=== PATIENT | male | born 1950 | race Caucasian/White ===

== ENCOUNTER 2021-01-15 01:32 | Day surgery (SDC) | payer MEDICARE, SELFPAY ==
[2020-12-25 15:32] VITALS: BMI 37.3
[2021-01-15 07:16] VITALS: BP 133/64; PULSE 65; RESP 18; TEMP 36.4; O2SAT 97; BMI 36.6
[2021-01-15] MEDS: LACTATED RINGERS 1,000 ML 150 ML IV CONT (07:31)
--- NOTE | 2021-01-15 07:50 | WPDANESEPPF ---
Anes - Initial Pre Proc Eval Procedure: Operation Date: 01/15/21 08:30 Proposed Procedures p Screening Colonoscopy - Jose Fraga MD Date/Time: 01/15/21 07:50 Surgeon: Jose Fraga MD Pre Op Diagnosis: hx of colon polyps Patient Data Age: 70 Gender: M Height: 1.83 m Weight: 122.5 kg Last Vital Signs Temp 36.4 C L 01/15/21 07:16 Pulse 65 01/15/21 07:16 Resp 18 01/15/21 07:16 BP 133/64 01/15/21 07:16 Pulse Ox 97 01/15/21 07:16 Allergies Allergy/AdvReac Type Severity Reaction Status Date / Time Gsmkmzs-Jda-Wrg Reductase AdvReac Intermediate severe leg Verified 01/15/21 07:13 Inhibitor cramps Home Medications Medication Instructions Recorded Confirmed Type alprazolam 0.5 mg tablet 0.5 mg PO Q4-5H tablet 09/03/19 12/25/20 History ascorbic acid (vitamin C) 500 mg 500 mg PO DAILY 10/19/19 12/25/20 History capsule garlic 300 mg capsule 300 mg PO BID cap 10/19/19 12/25/20 History lactobacillus combination no.9 4 4,000 mmu cells PO DAILY 10/19/19 12/25/20 History billion cell capsule psyllium husk 3.4 gram/5.4 gram 1 tbsp PO DAILY 10/19/19 12/25/20 History oral powder triamcinolone acetonide 0.1 % 1 applic TOPICAL QID #80 g 06/24/20 12/25/20 Rx topical cream ezetimibe 10 mg tablet 10 mg PO DAILY #90 tablet 10/27/20 12/25/20 Rx valsartan 80 See Rx Instructions .ROUTE 11/17/20 12/25/20 Rx mg-hydrochlorothiazide 12.5 mg .COMPLEX #90 tablet tablet escitalopram oxalate [Lexapro] 20 mg PO DAILY 12/25/20 12/25/20 History Patient hx anesthesia problems: none Family hx anesthesia problems: none PMFSH Past Medical History Medical History (Updated 01/15/21 @ 07:51 by Binh Traore MD) Anxiety Obesity Social History Social History Smoking status: Current every day smoker Tobacco type: pipe Alcohol intake: current Substance use type: does not use Living arrangements: with family Gender identity (if verbalized by the patient): Male Anes - Eval Final PreProcedure Day of Procedure 01/15/21 07:50 Patient weight: obese Heart: regular rate and rhythm Lungs: clear to auscultation Airway: Mallampati scale class 1 Neurological: alert and oriented Last oral intake: >/= 8 hours ASA classification: III Emergent: no Anesthetic plan: proceed Anesthesia type and monitoring: general GIVS and standard monitoring Informed Consent: The patient's anesthetic plan and its attendant risks and benefits were discussed with the patient/family/POA. Questions were solicited and answers provided to the satisfaction of the patient/family/POA.
--- NOTE | 2021-01-15 08:03 | PM.HPGS ---
History of Present Illness History of Present Illness Consent: Risks, benefits, and alternatives have been discussed and questions answered. Patient agrees to proceed with procedure. Chief complaint: hx of colon polyps Narrative: Preston Meyers is a 70 year old male here for colon cancer screening. He has a history of having had polyps on previous colonoscopies the last 1 6 years ago Review of Systems Review of Systems: All systems reviewed & are unremarkable except as noted in HPI and below PMFSH Past Medical History Medical History Anxiety Obesity Social History Social History Smoking status: Current every day smoker Tobacco type: pipe Alcohol intake: current Substance use type: does not use Living arrangements: with family Gender identity (if verbalized by the patient): Male Meds Home Medications and Allergies Home Medications Medication Instructions Recorded Confirmed Type alprazolam 0.5 mg tablet 0.5 mg PO Q4-5H tablet 09/03/19 12/25/20 History ascorbic acid (vitamin C) 500 mg 500 mg PO DAILY 10/19/19 12/25/20 History capsule garlic 300 mg capsule 300 mg PO BID cap 10/19/19 12/25/20 History lactobacillus combination no.9 4 4,000 mmu cells PO DAILY 10/19/19 12/25/20 History billion cell capsule psyllium husk 3.4 gram/5.4 gram 1 tbsp PO DAILY 10/19/19 12/25/20 History oral powder triamcinolone acetonide 0.1 % 1 applic TOPICAL QID #80 g 06/24/20 12/25/20 Rx topical cream ezetimibe 10 mg tablet 10 mg PO DAILY #90 tablet 10/27/20 12/25/20 Rx valsartan 80 See Rx Instructions .ROUTE 11/17/20 12/25/20 Rx mg-hydrochlorothiazide 12.5 mg .COMPLEX #90 tablet tablet escitalopram oxalate [Lexapro] 20 mg PO DAILY 12/25/20 12/25/20 History Allergies Allergy/AdvReac Type Severity Reaction Status Date / Time Qqpyfwc-Eoa-Ald Reductase AdvReac Intermediate severe leg Verified 01/15/21 07:13 Inhibitor cramps Vital Signs Vital Signs - 24 hr 01/15/21 07:16 Temperature 36.4 C L Pulse Rate 65 Respiratory Rate 18 Blood Pressure 133/64 Pulse Oximetry 97 Exam Resp: Auscultation: clear to auscultation bilaterally Cardio: Rate: regular rate Rhythm: regular rhythm GI: GI Palp: Yes Soft to palpation and No Tenderness to palpation present (GI) Assessment and Plan Assessment and plan (1) Colon cancer screening: Code(s): Z12.11 - Encounter for screening for malignant neoplasm of colon Status: Acute Assessment and Plan: Colonoscopy with possible biopsy or polypectomy or cautery or injection of substances.
[2021-01-15 08:41] VITALS: BP 104/70; PULSE 62; RESP 16; O2SAT 95
[2021-01-15 08:51] VITALS: BP 115/75; PULSE 57; RESP 23; O2SAT 97
[2021-01-15 09:01] VITALS: BP 123/76; PULSE 56; RESP 12; O2SAT 100
== END 2021-01-15 09:21 | disposition home or self-care (01) ==
PROVIDERS: PCP Family Medicine; Visit Provider Internal Medicine Gastroenterology
PROC: 0DJD8ZZ Inspection of Lower Intestinal Tract, Via Natural or Artificial Opening Endoscopic (ICD-10-PCS; CPT 45378; principal; 2021-01-15 08:30)
DX: Z12.11 Encounter for screening for malignant neoplasm of colon (principal); K57.30 Diverticulosis of large intestine without perforation or abscess without bleeding; Z86.010 Personal history of colon polyps; F41.9 Anxiety disorder, unspecified; E66.9 Obesity, unspecified; Z68.36 Body mass index [BMI] 36.0-36.9, adult; F17.290 Nicotine dependence, other tobacco product, uncomplicated
CPT/HCPCS: G0105; J2704; J7120

== ENCOUNTER 2021-07-14 10:09 | Emergency (ER) | payer MEDICARE, SELFPAY ==
[2021-07-14] VITALS (20 sets, daily range): BP systolic 111–145; BP diastolic 53–83; PULSE 57–78; RESP 13–27; TEMP 36.8–36.9; O2SAT 95–99
--- NOTE | ~2021-07-14 | XR_ITS ---
EXAMINATION: XR chest 1V DATE: 07/14/2021 16:46 INDICATION: Dizziness. Hypertension. Parkinson's. TECHNIQUE: frontal view of the chest was obtained. COMPARISON: None FINDINGS: Opacities at the left lower lung zone with obscuration of the left hemidiaphragm and blunting at the left costophrenic angle. No pneumothorax or right-sided pleural effusion. The cardiomediastinal silho uette is normal. Couple old left-sided rib fractures. IMPRESSION: 1. Opacities in the left lower lung zone which could represent atelectasis, pneumonia, small left ple ural effusion or some combination thereof. Reviewed, dictated and finalized at location B. TELECOM TECHNICIAN IMPRESSION: 1. Opacities in the left lower lung zone which could represent atelectasis, pne umonia, small left pleural effusion or some combination thereof.
--- NOTE | ~2021-07-14 | CT_ITS ---
EXAMINATION: CT brain wo con DATE: 07/14/2021 16:42 INDICATION: Dizziness TECHNIQUE: Computed tomography (CT) of the head was performed without intravenous contrast. Sagittal and coronal reconstructions were performed. The mA was adjusted according to patient size. Iterative reconstruction technique was employed. The dose-length product was 681.00 mGy-cm. COMPARISON: None FINDINGS: No acute intracranial hemorrhage, acute infarction or abnormal extra axial fluid collection. Ventricl es are normal and symmetric. No mass/mass effect. Complete opacification of the left frontal sinus, a nterior left ethmoid air cells and left maxillary sinus with complete occlusion of the left ostiomeat al complex. There is sclerotic thickening of the wall of both the left frontal and maxillary sinuses consistent with chronic sinusitis. The orbits and mastoid air cells are normal. IMPRESSION: 1. Normal aging brain. No acute intracranial process. 2. Chronic sinusitis involving the drainage of the left ostiomeatal complex. Reviewed, dictated and finalized at location B. [employer]
--- NOTE | 2021-07-14 16:31 | ECG_ITS ---
Measurements Intervals [place] Rate: 64 P: 60 ME: 182 QRS: 13 QRSD: 98 T: 53 QT: 416 QTc: 431 Interpretive Statements SINUS RHYTHM ATRIAL PREMATURE COMPLEX BASELINE ARTIFACT- I, II, III, AVR, AVL, AVF, V1-V2 BORDERLINE ECG Electronically Signed On 07-14-2021 20:15:22 WEBSITE ADMIN by Mele Eason D.O.
[2021-07-14 17:25] LABS: Basophils Absolute Auto 0.1 K/mm3 (0.0-0.1); Basophils Percent Auto 0.6 % (0.2-1.2); Eosinophils Absolute Auto 0.4 K/mm3 (0-0.3); Eosinophils Percent Auto 4.6 % (0-4.4); Hematocrit 41.4 % (42.0-52.0); Hemoglobin 13.9 g/dL (14.0-18.0); Immature Granulocyte Absolute 0.04 K/mm3 (0.00-0.031); Immature Granulocyte Percent A 0.5 % (0-0.5); Lymphocytes Absolute Auto 2.17 K/mm3 (0.9-3.2); Lymphocytes Percent Auto 27.5 % (18.3-44.2); Mean Corpuscular HGB Conc 33.6 g/dl (32-36); Mean Corpuscular Hemoglobin 29.3 pg (26-34); Mean Corpuscular Volume 87.2 fl (80-100); Mean Platelet Volume 9.5 fl (7.4-10.4); Monocytes Absolute Auto 0.7 K/mm3 (0.1-0.6); Monocytes Percent Auto 8.5 % (2.6-8.5); Neutrophils Absolute Auto 4.6 K/mm3 (1.3-6.7); Neutrophils Percent Auto 58.3 % (45.5-73.1); Platelet Count Result 215 k/mm3 (150-375); Red Blood Count 4.75 M/mm3 (4.6-6.20); Red Cell Distribution Width 13.2 % (11.5-14.5); White Blood Count 7.9 K/mm3 (4.5-10.0)
[2021-07-14 17:35] LABS: Alanine Aminotransferase 16 U/L (4-50); Alkaline Phosphatase 79 U/L (38-126); Anion Gap 6 mmol/L (8-16); Aspartate Amino Transferase 17 U/L (17-59); Bilirubin,Total 0.7 mg/dL (0.2-1.3); Blood Urea Nitrogen 16 mg/dL (9-20); Calcium 8.7 mg/dL (8.4-10.2); Carbon Dioxide 28 mmol/L (22-30); Chloride 104 mmol/L (98-107); Estimated CRCL calculation 80 ml/min; Estimated Glomerular Filt Rate > 60; Glucose 108 mg/dL (65-110); Potassium 3.9 mmol/L (3.4-5.0); Sodium 138 mmol/L (137-145)
[2021-07-14 17:46] LABS: Troponin I < 0.012 ng/mL (0.000-0.034)
[2021-07-14 17:51] LABS: Add Urine Microscopic? NO; Appearance Urine Clear (Clear); Bilirubin Urine Negative (Negative); Blood Urine Negative (Negative); Color Urine Straw (Yellow); Glucose Urine UA Negative (Negative); Ketones Urine Negative (Negative); Leukocyte Esterase Ur Negative LEU/UL (Negative); Nitrate Urine Negative (Negative); Protein Urine Negative (Negative); Specific Grav Ur 1.009 (1.001-1.035); Urobilinogen Urine Negative mg/dL (<2.0)
--- NOTE | 2021-07-14 19:10 | ED.DIZZY ---
HPI - Dizziness General Chief Complaint: Dizziness Stated Complaint: vertigo Time Seen by Provider: 07/14/21 16:28 Source: patient and RN notes reviewed Mode of arrival: ambulatory Limitations: no limitations History of Present Illness HPI Narrative: Patient is 71 years old white male presents to the ED because of intermittent dizziness started 4 days ago. Today patient have no dizziness all day long. Currently patient is asymptomatic. Patient denies any fever, chills, nausea, vomiting, headache, chest pain, shortness of breath, coughing. Patient is vaccinated and boosted for Covid. Patient denies exposure to anybody have Covid recently. Patient tested -2 days ago. Patient reported that the dizziness is like wobbly feeling when he get up or move his head rapidly to the right or to the left.. Gets better when he laid down. Again today patient is asymptomatic and the dizziness is resolved. Related Data Home Medications Medication Instructions Recorded Confirmed ascorbic acid (vitamin C) 500 mg 500 mg PO DAILY 10/19/19 06/17/21 capsule garlic 300 mg capsule 300 mg PO BID cap 10/19/19 06/17/21 lactobacillus combination no.9 4 4,000 mmu cells PO DAILY 10/19/19 06/17/21 billion cell capsule psyllium husk 3.4 gram/5.4 gram 1 tbsp PO DAILY 10/19/19 06/17/21 oral powder Allergies Allergy/AdvReac Type Severity Reaction Status Date / Time Ddtgicj-YVV-RwY Reductase AdvReac Intermediate severe leg Verified 06/17/21 11:05 Inhibitor cramps [Bpaezej-Yxk-Bpl Reductase Inhibitor] Review of Systems Review of Systems: CONSTITUTIONAL: Denies fever, chills, or sweats. EYES: Denies visual changes, redness, or discharge. ENT: Denies rhinorrhea, congestion, sore throat, or otalgia. CARDIOVASCULAR: Denies chest pain, palpitations, or edema. RESPIRATORY: Denies cough or dyspnea. GASTROINTESTINAL: Denies abdominal pain, nausea, vomiting, or diarrhea. GENITOURINARY: Denies dysuria or hematuria. SKIN: Denies rash or itching. MUSCULOSKELETAL: Denies back pain, joint pain, or myalgia. NEUROLOGIC: Denies headache, numbness, or weakness. PSYCHIATRIC: Denies anxiety or depression. [facility] Past Medical History Medical History Anxiety Obesity Social History Social History Tobacco type: pipe Alcohol intake: current Substance use type: does not use Gender identity (if verbalized by the patient): Male Exam Narrative: General appearance: Well-developed, well-nourished Skin: Normal color Head: Normocephalic, nontraumatic Eyes: Clear conjunctiva ENT: Oropharynx normal, ears normal, nose normal Neck: Supple, nontender Chest and respiratory: Airway patent, no respiratory distress, no accessory muscle use Heart: Regular rate/rhythm Abdomen: Soft, nontender, no organomegaly, quiet bowel sounds Vascular: Normal peripheral pulses, normal capillary refill. Musculoskeletal: Normal range of motion, nontender back Neurologic: Alert and oriented ?3, MACHINE ROOM OPERATOR is normal as tested, no gross motor deficit Course Course Emergency Course: Stable, resolved Vital Signs Vital signs: Vital Signs Temperature 36.9 C 07/14/21 10:23 Pulse Rate 73 07/14/21 10:23 Respiratory Rate 18 07/14/21 10:23 Blood Pressure 136/82 07/14/21 10:23 Pulse Oximetry 95 07/14/21 10:23 Temperature 36.8 C 07/14/21 16:11 Pulse Rate 60 07/14/21 18:30 Respiratory Rate 13 07/14/21 17:32 Blood Pressure 125/83 07/14/21 18:30 Pulse Oximetry 95 07/14/21 18:00 MDM - Dizziness MDM Narrative Medical decision making narrative: Work-up showed orthostatic h
--- NOTE | 2021-07-14 19:31 | PC.NURSE ---
Assumed care of pt, discussed POC. Pt states he is no longer dizzy and is requesting to leave. Declines IV and fluids. EDP made aware and at bedside to discuss.
== END 2021-07-14 20:01 | disposition home or self-care (01) ==
PROVIDERS: Emergency Provider Emergency Medicine; PCP Family Medicine
DX: I95.1 Orthostatic hypotension (principal); F41.9 Anxiety disorder, unspecified; E66.9 Obesity, unspecified; Z68.38 Body mass index [BMI] 38.0-38.9, adult; R91.8 Other nonspecific abnormal finding of lung field; R94.31 Abnormal electrocardiogram [ECG] [EKG]; J32.9 Chronic sinusitis, unspecified
CPT/HCPCS: 36415; 70450; 71045; 80053; 81003; 84484; 85025; 93005; 99284

== ENCOUNTER 2021-11-25 09:41 | Outpatient (CLI) | payer MEDICARE, SELFPAY ==
--- NOTE | ~2021-11-25 | XR_ITS ---
EXAMINATION:XR cervical spine min 6V DATE: 11/25/2021 10:00 INDICATION: Left arm tingling and pain TECHNIQUE: AP, lateral, bilateral oblique, lateral swimmers and odontoid views of the cervical spine are provided. COMPARISON: None FINDINGS: Alignment is normal. The odontoid is intact. No fracture is identified. There is severe los s of intervertebral disc space height at C6-7. There is moderate loss of intervertebral disc space he ight at C4-5 and mild loss of intervertebral disc space height throughout the remainder of the cervic al spine. The vertebral body heights are maintained. Small degenerative osteophytes project from the anterior endplates of multiple vertebral bodies. There is severe facet and uncovertebral joint osteoa rthritis throughout the cervical spine. There appears to be severe neuroforaminal stenosis on the rig ht at C6-7 and on the left at C3-4. Prevertebral soft tissues are normal. IMPRESSION: 1. Severe cervical spondylosis without acute findings. Reviewed, dictated and finalized at location A.
== END 2021-11-25 09:42 | disposition home or self-care (01) ==
PROVIDERS: PCP Family Medicine; Visit Provider Family Medicine
DX: G56.00 Carpal tunnel syndrome, unspecified upper limb (principal); G20 Parkinson's disease; M47.892 Other spondylosis, cervical region
CPT/HCPCS: 72052

== ENCOUNTER 2022-01-14 09:30 | Outpatient (CLI) | payer MEDICARE, SELFPAY ==
--- NOTE | 2022-01-14 11:30 | NEURO_ITS ---
Impression: # Complains of numbness in hands. # Bilateral Carpal Tunnel Syndrome, left more than right. # Abnormal needle/EMG. # Clinical correlation recommended. Nerve Conduction Studies Anti Sensory Summary Table Stim Site NR Peak (ms) P-T Amp (?V) Site1 Site2 Delta-P (ms) Dist (cm) Rl (m/s) Left Median Anti Sensory (2-3nd Digit) Wrist 5.1 12.5 Wrist 2-3nd Digit 5.1 14.0 27 Wrist 5.4 7.4 Wrist 2-3nd Digit 5.1 14.0 27 Right Median Anti Sensory (2-3nd Digit) Wrist 3.8 7.1 Wrist 2-3nd Digit 3.8 14.0 37 Wrist 4.3 10.4 Wrist 2-3nd Digit 3.8 14.0 37 Left Radial Anti Sensory (Base 1st Digit) Wrist 2.6 27.4 Wrist Base 1st Digit 2.6 0.0 Right Radial Anti Sensory (Base 1st Digit) Wrist 2.8 5.4 Wrist Base 1st Digit 2.8 0.0 Left Ulnar Anti Sensory (5th Digit) Wrist 2.5 16.5 Wrist 5th Digit 2.5 14.0 56 Right Ulnar Anti Sensory (5th Digit) Wrist 2.9 37.0 Wrist 5th Digit 2.9 14.0 48 Motor Summary Table Stim Site NR Onset (ms) O-P Amp (mV) Site1 Site2 Delta-0 (ms) Dist (cm) Rl (m/s) Left Median Motor (Abd Poll Brev) Wrist 7.0 1.2 Elbow Wrist 6.6 28.0 42 Elbow 13.6 0.6 Right Median Motor (Abd Poll Brev) Wrist 4.2 1.8 Elbow Wrist 4.7 28.0 60 Elbow 8.9 1.0 Left Ulnar Motor (Abd Dig Minimi) Wrist 2.5 8.2 A Elbow Wrist 5.2 30.0 58 A Elbow 7.7 5.9 Right Ulnar Motor (Abd Dig Minimi) Wrist 2.6 6.9 A Elbow Wrist 5.4 31.0 57 A Elbow 8.0 5.6 F Wave Studies NR F-Lat (ms) L-R F-Lat (ms) Left Median (Mrkrs) (Abd Poll Brev) 31.81 0.94 Right Median (Mrkrs) (Abd Poll Brev) 30.88 0.94 Left Ulnar (Mrkrs) (Abd Dig Min) 29.67 0.88 Right Ulnar (Mrkrs) (Abd Dig Min) 30.55 0.88 EMG Side Muscle Nerve Root Ins Act Fibs Amp Dur Recrt Comment Right 1stDorInt Ulnar C8-T1 Nml Nml Nml Nml Nml Right Ext Indicis Radial (Post Int) C7-8 Nml Nml Nml Nml Nml Right Ext Digitorum Radial (Post Int) C7-8 Nml Nml Nml Nml Nml Right BrachioRad Radial C5-6 Nml Nml Nml Nml Nml Right PronatorTeres Median C6-7 Nml Nml Nml Nml Nml Right Abd Poll Brev Median C8-T1 Nml Nml Nml Nml Nml Left 1stDorInt Ulnar C8-T1 Nml Nml Nml Nml Nml Left Ext Indicis Radial (Post Int) C7-8 Nml Nml Nml Nml Nml Left Ext Digitorum Radial (Post Int) C7-8 Nml Nml Nml Nml Nml Left BrachioRad Radial C5-6 Nml Nml Nml Nml Nml Left PronatorTeres Median C6-7 Nml Nml Nml Nml Nml Left Abd Poll Brev Median C8-T1 Nml Nml Decr >12ms Reduced MTDD
== END 2022-01-14 09:31 | disposition home or self-care (01) ==
LOC: ANHNEURO 09:31
PROVIDERS: PCP Family Medicine; Visit Provider Family Medicine
DX: G20 Parkinson's disease (principal); G56.03 Carpal tunnel syndrome, bilateral upper limbs
CPT/HCPCS: 95886; 95911

== ENCOUNTER 2022-03-01 12:30 | Outpatient (RCR) | payer MEDICARE, SELFPAY ==
--- NOTE | 2022-01-29 15:41 | PTOPEVAL ---
PHYSICAL THERAPY INITIAL EVALUATION. Thank you for referring Preston Meyers to [facility].? The patient is scheduled to be seen for therapy? 2x/week for 4 weeks. Please review, sign, date and return this plan of care YOLANDA. I agree with and certify that the following plan of care is medically necessary. Referring Physician Date Attending Provider: Margy Cowan DO *PT Outpatient Evaluation Start: 01/29/22 Evaluation Information Diagnosis Neck pain due to DDD Onset chronic Subjective Information The pt reports that about a Query Text:As Reported By Patient/ year ago he started getting Family tingling in his L hands. He states this has started to happen randomly in his R hands as well. He has had carpal tunnel testing done in the past and this was negative. He states a doctor in the past did a cervical distraction and his symptoms disappeared. He was given a soft collar for cervical distraction. He declines much neck pain, his main issue is the tingling. Pt also has a history of Parkinsons, he has a mild resting tremor in his L hand. Pain Assessment Spine, Cervical Reported Pain Level 0 Pain Description Numbness,Tightness Pain Radiation Left Arm Greatest Pain Intensity 3 Cervical and Lumbar ROM Cervical ROM Cervical Flexion (0-60) 35 active Cervical Extension (0-70) 28 active Cervical Lateral Flexion Right (0-50) 25 active Cervical Lateral Flexion Left (0-50) 25 active Cervical Rotation Right (0-90) 50 active Cervical Rotation Left (0-90) 45 active Cervical ROM 50% of Normal Upper Extremity Range of Motion General Upper Extremity Range of Motion WFL/Left,WFL/Right Upper Extremity Muscle Strength Testing Gross Upper Extremity Strength Comments BUE grossly 4+/5 Posture Head/C-Spine Posture Forward Head Thoracic Spine Posture Increased Kyphosis Lumbar Spine Posture Decreased Lordosis Special Tests-Upper Extremity Shoulder Special Tests Upper Limb Tension Test:Median Negative Left,Positive Right Upper Limb Tension Test:Ulnar Positive Left,Positive Right Safety Assessment Factors Affecting Safety No Concerns PT Clinical Summary Preston is an active 71 y/o male who presents to therapy today with a diagnosis of cervical disc
--- NOTE | 2022-02-24 09:45 | PCPTNOTE ---
Patient called & cancelled scheduled appointment this date due to his having Covid.
--- NOTE | 2022-02-26 09:28 | PCPTNOTE ---
Patient called to cancel due to being double booked.
--- NOTE | 2022-03-01 13:15 | PTOPEVAL ---
PHYSICAL THERAPY PROGRESS REPORT AND DISCHARGE SUMMARY. Thank you for referring Preston Meyers to [facility].? The patient is to be discharged from skilled therapy services at this time. Please review, sign, date and return this plan of care YOLANDA. I agree with and certify that the following plan of care is medically necessary. Referring Physician Date Attending Provider: Margy Cowan DO *PT Outpatient Evaluation Start: 01/29/22 Evaluation Information Diagnosis Neck pain due to DDD Onset chronic Subjective Information Pt states things are going Query Text:As Reported By Patient/ really well. He states he is Family as pleased as punch . Pt states he still gets numbness from time to time but he is able to do his exercises to mediate it. He states the numbness is becoming less frequent as well. He states he can now sleep through the night without an increased in symptoms. Pain Assessment Self Report Pain Assessment Spine, Cervical Reported Pain Level 0 Lowest Pain Intensity 0 Greatest Pain Intensity 2 Cervical and Lumbar ROM Cervical ROM Cervical Flexion (0-60) 40 active Cervical Extension (0-70) 35 active Cervical Lateral Flexion Right (0-50) 28 active Cervical Lateral Flexion Right (0-50) 45 passive Cervical Lateral Flexion Left (0-50) 30 active Cervical Lateral Flexion Left (0-50) 45 passive Cervical Rotation Right (0-90) 50 active Cervical Rotation Right (0-90) 60 passive Cervical Rotation Left (0-90) 45 active Cervical Rotation Left (0-90) 60 passive Cervical ROM 75% of Normal Posture Head/C-Spine Posture Forward Head Thoracic Spine Posture Increased Kyphosis Lumbar Spine Posture Decreased Lordosis Palpation Assessment Palpation none reported Manual Therapy Manual Therapy Location Spine, Cervical Patient Position Supine Manual Therapy Treatment Passive Stretching,Soft Tissue Mobilization Treatment Comments - cerical distraction Query Text:Include Technique and - passive cervical rotation, Result of Technique lateral flexion stretching, levator scap stretching - STM to upper trap levator scap, and suboccipitals - lateral side glide mobilization PT Clinical Summary Preston ramirez
== END 2022-03-01 14:42 | disposition home or self-care (01) ==
LOC: ANHGOSHPT 12:30
PROVIDERS: PCP Family Medicine; Visit Provider Family Medicine
DX: M50.30 Other cervical disc degeneration, unspecified cervical region (principal)
CPT/HCPCS: 97110; 97112; 97140; 97161

== ENCOUNTER 2023-03-25 01:28 | Day surgery (SDC) | payer MEDICARE, SELFPAY ==
[2023-03-16 14:16] VITALS: BMI 37.3
--- NOTE | 2023-03-24 15:40 | PM.HPGS ---
History of Present Illness History of Present Illness Consent: Risks, benefits, and alternatives have been discussed and questions answered. Patient agrees to proceed with procedure. Chief complaint: Noninfective gastroenteritis and colitis, unspecif Narrative: Preston Meyers is a 73 year old male with persistent diarrhea.? About a year ago I had started him on amitriptyline for suspected IBS D.? He did okay on a low dose 25 mg per day but when symptoms return he saw Evie our office and his dose was increased to 50 mg.? He was somewhat better after that but still always has at least 3-5 bowel movements per day. Review of Systems Review of Systems: All systems reviewed & are unremarkable except as noted in HPI and below PMFSH Past Medical History Medical History Anxiety Benign essential HTN Chronic diarrhea Hx of colonic polyps IBS (irritable bowel syndrome) Irritable bowel syndrome with diarrhea Leukocytosis Mixed hyperlipidemia Obesity Obesity (BMI 30-39.9) RAE (obstructive sleep apnea) Parkinson disease Tobacco use Family History Family History Sibling Blood clotting disorder Social History Social History Smoking packs per day: 1 Smoking cigarettes per day: 20.0 Years smoked: 50 Smoking pack-years: 50.00 Smoking status: Current every day smoker Tobacco type: cigarettes Alcohol intake: current Drinks per week: 3 Substance use type: does not use Lack of Transportation: No Lack of Food: Never True Current Housing: I Have Housing Concerned About Future Housing: No Difficulty Paying Gas/Electric Bills: No Difficulty Paying for Meds: No Currently Unemployed: No Education: High School Diploma/GED Difficulty w/ Childcare or Family Care: No Living arrangements: with family Gender identity (if verbalized by the patient): Male Spiritual care concerns: No Meds Home Medications and Allergies Home Medications Medication Instructions Recorded Confirmed Type vit C 250 mg-vit E 200 unit-zinc 1 cap PO DAILY 01/21/22 03/25/23 History ox 12.5 cg-dsyebt-ioplwh-zeax capsule (ICaps AREDS2) aspirin 81 mg tablet,delayed 81 mg PO DAILY 03/31/22 03/25/23 History release (Adult Low Dose Aspirin) loperamide 2 mg tablet 2 mg PO .COMPLEX PRN loose stool 04/09/22 03/25/23 Rx #120 tabs oqncuoej-giy-xfrqf acid 0.4 1 tablet PO DAILY 04/21/22 03/25/23 History mg-lycopene 300 mcg-lutein 250 mcg tablet (Centrum Silver) omega 6-yag-vkc-fish oil 60 mg-90 1 cap PO BID 04/21/22 03/25/23 History mg-500 mg capsule (Fish Oil) ezetimibe 10 mg tablet 10 mg PO DAILY #90 tabs 05/07/22 03/25/23 Rx PAP Equipment #1 ea 08/13/22 03/25/23 Rx amitriptyline 50 mg tablet 50 mg PO QHS #30 tabs 12/17/22 03/25/23 Rx alprazolam 0.5 mg tablet (Xanax) 0.5 mg PO Q4-5H PRN anxiety 03/16/23 03/25/23 History escitalopram oxalate 20 mg tablet 20 mg PO DAILY 03/16/23 03/25/23 History valsartan 80 1 tablet PO DAILY 03/16/23 03/25/23 History mg-hydrochlorothiazide 12.5 mg tablet Allergies Allergy/AdvReac Type Severity Reaction Status Date / Time Qpsrsov-ZST-LrR Reductase AdvReac Intermediate severe leg Verified 03/25/23 08:32 Inhibitor cramps [Xdehmka-Vwr-Jfv Reductase Inhibitor] Exam Const: General: alert Orientation/consciousness: patient oriented x3 Resp: Auscultation: clear to auscultation bilaterally Cardio: Rhythm: regular rhythm GI: GI Palp: Yes Soft to palpation and No Tenderness to palpation present (GI) Neuro: General: patient oriented x3 Assessment and Plan Assessment and plan (1) Chronic diarrhea: Code(s): K52.9 - Noninfective gastroenteritis and colitis, unspecified Status: Acute Assessment and Plan: Colonoscopy with possible biopsy or polypectomy or cautery or injection of substances.
--- NOTE | 2023-03-25 08:00 | WPDANESEPPF ---
Anes - Initial Pre Proc Eval Procedure: Operation Date: 03/25/23 09:30 Proposed Procedures p Colonoscopy - Jose Fraga MD Date/Time: 03/25/23 08:00 Surgeon: Jose Fraga MD Pre Op Diagnosis: Noninfective gastroenteritis and colitis, unspecif Patient Data Age: 73 Gender: M Height: 1.83 m Weight: 125 kg Allergies Allergy/AdvReac Type Severity Reaction Status Date / Time Kpdtszu-NXO-XwD Reductase AdvReac Intermediate severe leg Verified 03/25/23 08:32 Inhibitor cramps [Vkpnsct-Zil-Esp Reductase Inhibitor] Home Medications Medication Instructions Recorded Confirmed Type vit C 250 mg-vit E 200 unit-zinc 1 cap PO DAILY 01/21/22 03/25/23 History ox 12.5 kx-aqgtmh-fifvoj-zeax capsule (ICaps AREDS2) aspirin 81 mg tablet,delayed 81 mg PO DAILY 03/31/22 03/25/23 History release (Adult Low Dose Aspirin) loperamide 2 mg tablet 2 mg PO .COMPLEX PRN loose stool 04/09/22 03/25/23 Rx #120 tabs ivufckxb-xfl-cayky acid 0.4 1 tablet PO DAILY 04/21/22 03/25/23 History mg-lycopene 300 mcg-lutein 250 mcg tablet (Centrum Silver) omega 1-hnd-ucn-fish oil 60 mg-90 1 cap PO BID 04/21/22 03/25/23 History mg-500 mg capsule (Fish Oil) ezetimibe 10 mg tablet 10 mg PO DAILY #90 tabs 05/07/22 03/25/23 Rx PAP Equipment #1 ea 08/13/22 03/25/23 Rx amitriptyline 50 mg tablet 50 mg PO QHS #30 tabs 12/17/22 03/25/23 Rx alprazolam 0.5 mg tablet (Xanax) 0.5 mg PO Q4-5H PRN anxiety 03/16/23 03/25/23 History escitalopram oxalate 20 mg tablet 20 mg PO DAILY 03/16/23 03/25/23 History valsartan 80 1 tablet PO DAILY 03/16/23 03/25/23 History mg-hydrochlorothiazide 12.5 mg tablet Patient hx anesthesia problems: none Family hx anesthesia problems: none Results Review: All pre-operative results and documents have been reviewed as part of the pre-operative evaluation. [facility] Past Medical History Medical History Anxiety Benign essential HTN Chronic diarrhea Hx of colonic polyps IBS (irritable bowel syndrome) Irritable bowel syndrome with diarrhea Leukocytosis Mixed hyperlipidemia Obesity Obesity (BMI 30-39.9) RAE (obstructive sleep apnea) Parkinson disease Tobacco use Family History Family History Sibling Blood clotting disorder Social History Social History Smoking packs per day: 1 Smoking cigarettes per day: 20.0 Years smoked: 50 Smoking pack-years: 50.00 Smoking status: Current every day smoker Tobacco type: cigarettes Alcohol intake: current Drinks per week: 3 Substance use type: does not use Lack of Transportation: No Lack of Food: Never True Current Housing: I Have Housing Concerned About Future Housing: No Difficulty Paying Gas/Electric Bills: No Difficulty Paying for Meds: No Currently Unemployed: No Education: High School Diploma/GED Difficulty w/ Childcare or Family Care: No Living arrangements: with family Gender identity (if verbalized by the patient): Male Spiritual care concerns: No Anes - Eval Final PreProcedure Day of Procedure 03/25/23 08:00 Patient weight: obese Heart: regular rate and rhythm Lungs: clear to auscultation Airway: Mallampati scale class II Neurological: alert and oriented Last oral intake: >/= 8 hours ASA classification: III Emergent: no Anesthetic plan: proceed Anesthesia type and monitoring: general GIVS and standard monitoring Results Review: All pre-operative results and documents have been reviewed as part of the pre-operative evaluation. Informed Consent: The patient's anesthetic plan and its attendant risks and benefits were discussed with the patient/family/POA. Questions were solicited and answers provided to the satisfaction of the patient/family/POA.
[2023-03-25 08:35] VITALS: BP 136/72; PULSE 90; RESP 20; TEMP 35.8; O2SAT 98; BMI 37.4
[2023-03-25] MEDS: LACTATED RINGERS 1,000 ML 150 ML IV CONT (08:48)
[2023-03-25 09:49] VITALS: BP 107/69; PULSE 76; RESP 13; O2SAT 95
[2023-03-25 09:59] VITALS: BP 119/74; PULSE 69; RESP 17; O2SAT 97
[2023-03-25 10:09] VITALS: BP 125/80; PULSE 68; RESP 19; O2SAT 98
== END 2023-03-25 10:24 | disposition home or self-care (01) ==
PROVIDERS: PCP Family Medicine; Visit Provider Internal Medicine Gastroenterology
PROC: 0DJD8ZZ Inspection of Lower Intestinal Tract, Via Natural or Artificial Opening Endoscopic (ICD-10-PCS; CPT 45378; principal; 2023-03-25 09:30)
DX: K52.9 Noninfective gastroenteritis and colitis, unspecified (principal); K57.30 Diverticulosis of large intestine without perforation or abscess without bleeding; I10 Essential (primary) hypertension; E78.2 Mixed hyperlipidemia; G20 Parkinson's disease; G47.33 Obstructive sleep apnea (adult) (pediatric); F41.9 Anxiety disorder, unspecified; E66.9 Obesity, unspecified; Z68.37 Body mass index [BMI] 37.0-37.9, adult; F17.210 Nicotine dependence, cigarettes, uncomplicated
CPT/HCPCS: 45380; 88305; J2704; J7120

== ENCOUNTER 2024-02-15 10:18 | Outpatient (CLI) | payer MEDICARE, SELFPAY ==
[2024-02-15 13:24] LABS: Anion Gap 10 mmol/L (4-12); Blood Urea Nitrogen 20 mg/dL (9-20); Calcium 8.8 mg/dL (8.4-10.2); Carbon Dioxide 27 mmol/L (22-30); Chloride 101 mmol/L (98-107); Estimated Glomerular Filt Rate > 60; Glucose 103 mg/dL (65-110); Potassium 4.2 mmol/L (3.4-5.0); Sodium 138 mmol/L (137-145)
== END 2024-02-15 10:19 | disposition home or self-care (01) ==
LOC: ANHGOSHLAB 10:20
PROVIDERS: PCP Family Medicine; Visit Provider Clinical Nurse Specialist
DX: I10 Essential (primary) hypertension (principal)
CPT/HCPCS: 36415; 80048

== ENCOUNTER 2024-02-29 09:51 | Outpatient (CLI) | payer MEDICARE, SELFPAY ==
--- NOTE | ~2024-02-29 | CT_ITS ---
EXAMINATION: CT lung screening DATE: 02/29/2024 10:23 INDICATION: F17.210 TECHNIQUE: Computed tomography (CT) of the chest was performed without intravenous contrast. Addition al 3D reconstructions utilizing coronal maximum intensity projection (MIP) were performed. Automated exposure control and iterative reconstruction technique were employed. The dose-length product was 42 5.70 mGy-cm. COMPARISON: None FINDINGS: 5 no motor nodule along a band of discoid atelectasis in the superior segment of the right lower lobe . 11 x 8 mm nodule at the junction of the left upper lobe and lingula. No pulmonary edema or pleural effusion. Heart size normal. Atheromatous chronic coronary artery calcification. Thoracic aorta is no rmal in caliber. No pathologically enlarged thoracic lymphadenopathy. Visualized upper abdomen is unr emarkable. Mild S-shaped curvature of the thoracic spine with mild spondylosis and nearly bridging os teophytes at multiple levels consistent with diffuse idiopathic skeletal hyperostosis (DISH). IMPRESSION: 1. Lung-RADS category 4A: (Suspicious, 5-15% chance of malignancy) recommend 3 month follow-up low-do se noncontrast chest CT or PET/CT for further evaluation. Reviewed, dictated and finalized at location A. IMPRESSION: 1. Lung-RADS category 4A: (Suspicious, 5-15% chance of malignancy) recommend 3 month follow-up low-dose noncontrast chest CT or PET/CT for further evaluation.
== END 2024-02-29 09:52 | disposition home or self-care (01) ==
PROVIDERS: PCP Family Medicine; Visit Provider Clinical Nurse Specialist
DX: Z12.2 Encounter for screening for malignant neoplasm of respiratory organs (principal); F17.210 Nicotine dependence, cigarettes, uncomplicated; R91.8 Other nonspecific abnormal finding of lung field
CPT/HCPCS: 71271

== ENCOUNTER 2024-03-22 07:27 | Outpatient (CLI) | payer MEDICARE, SELFPAY ==
--- NOTE | ~2024-03-22 | CT_ITS ---
EXAMINATION:CT diagnostic chest wo con DATE: 03/22/2024 09:37 INDICATION: Solitary pulmonary nodule. TECHNIQUE: Computed tomography (CT) of the chest was performed without intravenous contrast. Automate d exposure control and iterative reconstruction technique were employed. The dose-length product (DLP ) was 384.30 mGy-cm. COMPARISON: Chest CT 02/29/2024, PET/CT 03/22/2024 FINDINGS: The lungs demonstrate mild atelectasis. There is a 9 mm nodule in left upper lobe. There is a 5 mm nodule in right lower lobe. A calcified right lung nodule and calcified subcarinal lymph node are consistent with old granulomatous disease. There is mild atelectasis bilaterally. No pleural eff usion. There is bilateral gynecomastia. The heart size is normal. There are coronary artery calcifica tions. No pericardial effusion. There is mild thoracic spondylosis. IMPRESSION: 1. Pulmonary nodules measuring up to 9 mm without increased activity on today's PET, probably benign. Noncontrast low-dose chest CT is recommended in 6 months. Reviewed, dictated and finalized at location A. IMPRESSION: 1. Pulmonary nodules measuring up to 9 mm without increased activity on today's PET, probably benign. Noncontrast low-dose chest CT is recommended in 6 months .
--- NOTE | ~2024-03-22 | PE_ITS ---
EXAMINATION: PET skull to mid thigh DATE: 03/22/2024 09:45 INDICATION: Solitary pulmonary nodule TECHNIQUE: Blood glucose level was 113 mg/dL. 9.042 mCi of 18-fluorodeoxyglucose (18-FDG) was adminis tered i.v. Low dose computed tomography (CT) images were acquired from the base of the brain to the p roximal thighs for attenuation correction and anatomic localization. Positron emission tomography (PE T) images were acquired in the same distribution beginning 60 minutes after injection. Images includi ng fused PET/CT images were reconstructed in axial, coronal, and sagittal planes. Automated exposure control technique was employed. The dose-length product was 1337.57mGy-cm. COMPARISON: CT dated 02/29/2024 FINDINGS: Head/neck: There is symmetric increased activity in the nares, oral cavity, ankle tonsils and ocular muscles wit hout CT correlate, likely physiologic. There is mild mucosal activity at the periphery of the complet cyn opacified left maxillary sinus which demonstrates thickened sclerotic humphrey consistent with chron ic sinusitis. No pathologically enlarged cervical lymphadenopathy or suspicious foci of increased FDG uptake in the visualized head or neck. Chest: There is no evident FDG activity is/with a 9 mm nodule at the junction of the left upper lobe and erica gula. There is also no evident activity such with a 5 mm nodule along a linear band of discoid atelec tasis at the superior segment of the right lower lobe. Calcified right lower lobe nodule and calcifie d mediastinal lymph nodes consistent with old granulomatous disease. No pleural effusion. Heart size is normal. No pericardial effusion. Thoracic aorta is normal in caliber. No pathologically enlarged o r FDG avid thoracic lymphadenopathy. Abdomen/pelvis/proximal thighs: Physiologic renal accumulation and excretion of FDG activity in the kidneys, bladder and along portio ns of ureters. Normal degree and heterogenous pattern of increased uptake throughout the liver withou t radiologic correlate or dominant FDG avid lesion. The gallbladder, pancreas, spleen and bilateral a drenal glands are normal. Mild uptake scattered throughout the bowels without radiologic correlate, a lso likely physiologic. Small fat-containing umbilical hernia. No other abnormal foci of increased FD G uptake or pathologically enlarged lymphadenopathy in the abdomen, pelvis or proximal thighs. Musculoskeletal: Moderate cervical, mild thoracic and severe lumbar spondylosis. No suspicious lytic, blastic or abnor gris FDG avid bone lesions. IMPRESSION: 1. No FDG avid pulmonary nodules. While reassuring would recommend continued 6 month follow-up low-do se noncontrast chest CT for the 9 mm pulmonary nodule in the left lung. Reviewed, dictated and finalized at location B. IMPRESSION: 1. No FDG avid pulmonary nodules. While reassuring would recommend continued 6 month follow-up low-dose noncontrast chest CT for the 9 mm pulmonary nodule in the left lung.
[2024-03-22 08:12] LABS: Glucose Point of Care 113 mg/dl (65-105)
== END 2024-03-22 07:28 | disposition home or self-care (01) ==
PROVIDERS: PCP Family Medicine; Visit Provider Clinical Nurse Specialist
DX: R91.1 Solitary pulmonary nodule (principal); R91.8 Other nonspecific abnormal finding of lung field
CPT/HCPCS: 71250; 78815; A9552

== ENCOUNTER 2024-05-22 12:41 | Outpatient (CLI) | payer MEDICARE, SELFPAY ==
--- NOTE | ~2024-05-22 | XR_ITS ---
XR shoulder LT min 2V Ordering provider: WILFREDO Rees History: . M25.512 - Pain in left shoulder . Comparison: None. FINDINGS: BONES: No acute fracture or dislocation. JOINT SPACES: The acromioclavicular joint is normal. The glenohumeral joint is normal. SOFT TISSUES: Normal. IMPRESSION: No acute osseous abnormality left shoulder. Reviewed, dictated and finalized at location A. ROENTEROLOGY NURSE
== END 2024-05-22 12:42 | disposition home or self-care (01) ==
LOC: GOSHIMG 12:46
PROVIDERS: PCP Internal Medicine; Visit Provider Clinical Nurse Specialist
DX: M25.512 Pain in left shoulder (principal)
CPT/HCPCS: 73030

== ENCOUNTER 2024-06-22 08:32 | Outpatient (CLI) | payer MEDICARE, SELFPAY ==
--- NOTE | ~2024-06-22 | NM_ITS ---
EXAMINATION: NM terry stress w perfusion DATE: 06/22/2024 12:08 INDICATION: Abnormal electrocardiogram. Shortness of breath. TECHNIQUE: Rest images were obtained following intravenous administration of 9.3 mCi Tc99m tetrofosmi n (Myoview). The patient was infused intravenously with Lexiscan (regadenoson). Then, 30.5 mCi Tc99m tetrofosmin (Myoview) was administered intravenously, and supine and prone stress images were obtaine d. Data was reconstructed into short axis and horizontal and vertical long axis SPECT images. Gated S PECT images were also obtained. COMPARISON: Chest CT 03/22/2024 FINDINGS: There is a small, mild, fixed perfusion defect involving apical inferior segment of left ve ntricle, consistent with infarct. No reversible component to suggest ischemia. There is no segmental wall motion abnormality. Left ventricular ejection fraction measures 69%. IMPRESSION: 1. 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 2. Normal left ventricular ejection fraction measuring 69%. Reviewed, dictated and finalized at location A. [facility] IMPRESSION: 1. Small area of mild infarct involving apical inferior segment of left ventric le. 2. Normal left ventricular ejection fraction measuring 69%.
--- NOTE | 2024-06-22 08:42 | ECHO_ITS ---
Patient Info Name: Preston Meyers Age: 74 years : 1950 Gender: Male HR: 66 bpm BP: 126 / 74 mmHg Heart Rhythm: Sinus Rhythm Exam Date: 06/22/2024 9:08 AM Exam Location: Echo Lab Patient Status: Outpatient Admit Date: 06/22/2024 Staff Ordering Physician: Alivia Peres Stock Mover: Selma Parra RDCS Attending Provider: Alivia Peres Referring Physician: Ja WHITAKER; Exam Type: CA echo doppler color flow Study Info Indications R06.02 - Shortness of breath R42 - Dizziness and giddiness Complete two-dimensional, color flow and Doppler transthoracic echocardiogram is performed. Summary 1. Complete two-dimensional, color flow and Doppler transthoracic echocardiogram is performed. 2. Left ventricular chamber dimension is mildly enlarged. 3. Left ventricular systolic function is normal, estimated at 60-65%. 4. There is mild concentric increased left ventricular wall thickness. 5. The left ventricular diastolic function is grade I diastolic dysfunction. 6. E/e' 8 is minimally elevated. 7. Left atrial chamber dimension is mildly enlarged. 8. There is mild aortic valve sclerosis. 9. There is trace mitral valve regurgitation. 10. There is trace tricuspid valve regurgitation. 11. No pulmonary hypertension, estimated pulmonary arterial systolic pressure is 21 mmHg. 12. The aortic root size at the sinus of Valsalva is borderline dilated at 4.0 cm. Left Ventricle E/e' 8 is minimally elevated. Left ventricular chamber dimension is mildly enlarged. Left ventricular systolic function is normal, estimated at 60-65%. There is mild concentric increased left ventricular wall thickness. The left ventricular diastolic function is grade I diastolic dysfunction. Right Ventricle Right ventricular systolic function is normal and with normal TAPSE 2.5 cm. Right ventricular chamber dimension is normal. Left Atria Left atrial chamber dimension is mildly enlarged. Right Atria Right atrial chamber dimension is normal. Aortic Valve The aortic valve is trileaflet. There is mild aortic valve sclerosis. There is no aortic valve stenosis. There is no aortic valve regurgitation. Pulmonic Valve There is no pulmonic regurgitation. Mitral Valve There is no mitral valve stenosis. There is trace mitral valve regurgitation. Tricuspid Valve There is trace tricuspid valve regurgitation. No pulmonary hypertension, estimated pulmonary arterial systolic pressure is 21 mmHg. Pericardium/Pleural There is no pericardial effusion. Inferior Vena Cava Normal inferior vena cava with >50% collapse upon inspiration consistent with normal right atrial pressure, 5 mmHg. Aorta The aortic root size at the sinus of Valsalva is borderline dilated at 4.0 cm. Left Ventricular Outflow Tract Name Value Normal LVOT 2D LVOT Diameter 2.3 cm LVOT Doppler LVOT Peak Gradient 5 mmHg LVOT Mean Gradient 3 mmHg LVOT VTI 28 cm LVOT VTI/AV VTI Ratio 0.8 LVOT Stroke Volume 113 ml LVOT CO 7.2 l/min LVOT CI 2.9 l/min/m2 Pulmonic Valve Name Value Normal PV Doppler PV Peak Gradient 3 mmHg Mitral Valve Name Value Normal MV Doppler MV Peak Gradient 4 mmHg MV Mean Gradient 1 mmHg MV Decel [place] 392 cm/s2 MV PHT 55 ms MV Area (PHT) 4.0 cm2 4.0-5.0 MV Area (Cont Eq VTI) 3.5 cm2 MV Diastolic Function MV E Peak Velocity 74 cm/s MV A Peak Velocity 88 cm/s MV E/A 0.8 MV Decel Time 190 ms MV Annular TDI MV E/e' (Septal) 9.9 <=8.0 MV E/e' (Lateral) 7.8 <=8.0 MV E/e' (Average) 8.9 Tricuspid Valve Name Value Normal TV Regurgitation Doppler TR Peak Velocity 201 cm/s TR Peak Gradient 16 mmHg Estimated PAP/RSVP RA Pressure 5 mmHg <=5 PA Systolic Pressure 21 mmHg <36 RV Systolic Pressure 21 mmHg <36 Aortic Valve Name Value Normal AV Doppler AV Peak Velocity 144 cm/s AV Peak Gradient 8 mmHg AV Mean Gradient 4 mmHg AV VTI 37 cm AV Area (Cont Eq VTI) 3.1 cm2 >=3.0 AV Area (Cont Eq Rl) 3.3 cm2 AV Regurgitation 2D LVOT Area 4.1 cm2 Ventricles Name Value Normal LV Dimensions 2D/MM IVS Diastolic Thickness (2D) 1.0 cm 0.6-1.0 LVID Diastole (2D) 6.5 cm 4.2-5.8 LVIW Diastolic Thickness (2D) 1.0 cm 0.6-1.0 LVID Systole (2D) 4.1 cm 2.5-4.0 LVOT Diameter 2.3 cm LV Mass (2D Cubed) 287.60 g 88.00-224.00 Relative Wall Thickness (2D) 0.31 LV Fractional Shortening/Ejection Fraction 2D/MM LV Fractional Shortening (2D) 36 % 25-43 LV EF (2D Teicholz) 65 % 52-72 LV Diastolic Volume (4C MOD) 132 ml LV EF (4C MOD) 61 % LV Diastolic Length (4C) 8.3 cm LV Systolic Length (4C) 6.7 cm LV Stroke Volume (4C MOD) 81 ml Report Signatures
--- NOTE | 2024-06-22 08:42 | EST_ITS ---
Patient Info Name: Preston Meyers Age: 74 years : 1950 Gender: Male Ht: 72 in Wt: 280 lbs BSA: 2.59 m2 HR: 66 bpm BP: 146 / 70 mmHg Exam Date: 06/22/2024 11:16 AM Exam Location: Echo Lab Patient Status: Outpatient Admit Date: 06/22/2024 Staff Ordering Physician: Alivia Peres Attending Provider: Alivia Peres Exercise Technologist: Mia Dasilva RDCS Exercise Physician: Mele Eason DO Exam Type: CA stress terry w NM Study Info A regadenoson stress test was performed. Summary 1. 1. Negative lexiscan stress test for ischemic ST changes by ECG criteria. 2. 2. Baseline hypertension. 3. 3. Nuclear scan to follow and will be reported separately. Please correlate with it. 4. 4. Patient informed of the above results. Protocol: Lexiscan Stress ECG Details Stage: REST Duration (min): 2 min : 0 sec HR (bpm): 64 SBP (mmHg): 146 DBP (mmHg): 70 Stage: REST Duration (min): 7 min : 53 sec HR (bpm): 63 SBP (mmHg): 146 DBP (mmHg): 70 Stage: STAGE 1 Duration (min): 1 min : 0 sec HR (bpm): 69 SBP (mmHg): 141 DBP (mmHg): 60 Stage: RECOVERY Duration (min): 1 min : 0 sec HR (bpm): 89 SBP (mmHg): 141 DBP (mmHg): 60 Stage: RECOVERY Duration (min): 2 min : 0 sec HR (bpm): 79 SBP (mmHg): 141 DBP (mmHg): 60 Stage: RECOVERY Duration (min): 3 min : 0 sec HR (bpm): 80 SBP (mmHg): 141 DBP (mmHg): 60 Stage: RECOVERY Duration (min): 3 min : 34 sec HR (bpm): 81 SBP (mmHg): 177 DBP (mmHg): 56 Rest HR: 63 bpm Peak HR: 89 bpm Rest Sys BP: 146 mmHg Peak Sys BP: 177 mmHg Max Pred HR: 144 bpm % Max Pred HR: 62 % Target HR: 122 bpm Max RPP: 15,753 bpm*mmHg Termination Reason: Completed protocol Cardiac Symptoms: Shortness of breath Total Time: 1 min : 0 sec Rest Rao BP: 70 mmHg Peak Rao BP: 56 mmHg Total Dose: 0.4 mg Resting ECG Sinus rhythm. Stress ECG No ST changes. Arrhythmias None. Report Signatures
== END 2024-06-22 08:33 | disposition home or self-care (01) ==
LOC: ANHCARD 08:33
PROVIDERS: PCP Family Medicine; Visit Provider Clinical Nurse Specialist
DX: G47.33 Obstructive sleep apnea (adult) (pediatric) (principal); R06.02 Shortness of breath; Z82.49 Family history of ischemic heart disease and other diseases of the circulatory system; R42 Dizziness and giddiness
CPT/HCPCS: 78452; 93017; 93306; A9502; J2785

== ENCOUNTER 2025-01-20 09:43 | Emergency (ER) | payer MEDICARE, SELFPAY ==
[2025-01-20 09:53] VITALS: BP 124/58; PULSE 77; RESP 16; TEMP 35.9; O2SAT 97
--- NOTE | 2025-01-20 12:34 | ED.EYEPROB ---
HPI - Eye Problem General Chief complaint: Eye Problems Stated complaint: EYE REDNESS Time Seen by Provider: 01/20/25 09:56 Source: patient, family () and RN notes reviewed Mode of arrival: ambulatory Limitations: no limitations History of Present Illness HPI Narrative: Patient presents today with a 3 day history of left eye matting and green drainage, with the right eye starting today. He has recently developed some minor cold symptoms this week and was exposed to a child with some upper respiratory symptoms as well. Denies vision changes. He has tried Zyrtec without relief. Related Data Home Medications ?Medication ?Instructions ?Recorded ?Confirmed ?Last Taken ?Type vit C 250 mg-vit E 200 unit-zinc 1 cap PO DAILY 01/21/22 12/26/24 03/24/23 History ox 12.5 js-jmboih-widbvr-zeax capsule (ICaps AREDS2) aspirin 81 mg tablet,delayed 81 mg PO DAILY 03/31/22 01/20/25 03/24/23 History release (Adult Low Dose Aspirin) gshktvou-xbl-gkmhv acid 0.4 1 tablet PO DAILY 04/21/22 01/20/25 03/24/23 History mg-lycopene 300 mcg-lutein 250 mcg tablet (Centrum Silver) omega 0-pyn-stg-fish oil 60 mg-90 1 cap PO BID 04/21/22 01/20/25 03/24/23 History mg-500 mg capsule (Fish Oil) alprazolam 0.5 mg tablet (Xanax) 0.5 mg PO Q4-5H PRN anxiety 03/16/23 01/20/25 Unknown History psyllium husk 0.52 gram capsule 2.6 g PO DAILY 02/15/24 12/26/24 Unknown History amitriptyline 10 mg tablet 10 mg PO QHS 08/22/24 01/20/25 Unknown History loperamide 2 mg capsule 2 mg PO QID PRN loose stool 08/22/24 01/20/25 Unknown History Allergies Allergy/AdvReac Type Severity Reaction Status Date / Time Redikxt-AGQ-WpY Reductase AdvReac Intermediate severe leg Verified 01/20/25 10:01 Inhibitor (Qzsohwk-Umy-Pxl cramps Reductase Inhibitor) [facility] Past Medical History Medical History Chronic diarrhea Irritable bowel syndrome with diarrhea Tobacco use IBS (irritable bowel syndrome) Obesity (BMI 30-39.9) Leukocytosis Hx of colonic polyps RAE (obstructive sleep apnea) Anxiety Obesity Parkinson disease Mixed hyperlipidemia Benign essential HTN Family History Family History Sibling Blood clotting disorder Social History Social History Social History: caffeine 2 cups of coffee Smoking packs per day: 1 Smoking cigarettes per day: 20.0 Years smoked: 50 Smoking pack-years: 50.00 Smoking status: Current every day smoker Tobacco type: cigarettes Alcohol intake: current Drinks per week: 3 Substance use: never Substance use type: does not use Do You Feel Safe in your Home?: Yes Lack of Transportation: No Lack of Food: Never True Current Housing: I Have Housing Concerned About Future Housing: No Difficulty Paying Gas/Electric Bills: No Difficulty Paying for Meds: No Currently Unemployed: No Education: Master's Degree or Higher Difficulty w/ Childcare or Family Care: No Living arrangements: with family Gender identity (if verbalized by the patient): Male Spiritual care concerns: No Comments At time of signature, I have reviewed and agree with nursing past medical, surgical, social and family history unless otherwise noted. Please see nursing chart for further information. There is no relevant family history pertinent to the presenting complaint Exam Narrative: GENERAL: Well-appearing, well-nourished, and in no acute distress. HEAD: Normocephalic, atraumatic. EYES: EOMI. PERRL. Bilateral conjunctival injection with copious purulent green discharge. Lashes are matted with drainage. ENT: Mucous membranes pink and moist. Nares clear. NECK: Normal AROM. CHEST: No respiratory distress. EXTREMITIES: Normal range of motion. No edema. SKIN: Warm, dry, no rash. Capillary refill normal. Normal skin turgor. NEURO: No focal deficits. Alert and oriented x3. Gait steady. PSYCH: Normal affect. No signs of depression or anxiety. Course Course Level of Care: Express Care Visit Vital Signs Vital signs: Vital Signs Temperature 96.7 F L 01/20/25 09:53 Pulse Rate 77 01/20/25 09:53 Respiratory Rate 16 01/20/25 09:53 Blood Pressure 124/58 L 01/20/25 09:53 Pulse Oximetry 97 01/20/25 09:53 Temperature 96.7 F L 01/20/25 09:53 Pulse Rate 77 01/20/25 09:53 Respiratory Rate 16 01/20/25 09:53 Blood Pressure 124/58 L 01/20/25 09:53 Pulse Oximetry 97 01/20/25 09:53 Reviewed MDM - Eye Problem MDM Narrative Medical decision making narrative: 74-year-old male patient presents with bilateral eye redness, drainage, matting. Left eye started 3 days ago and right eye started morning. Did have some sick exposures recently. Taking Zyrtec but no other specific eye interventions. Exam shows copious purulent discharge bilaterally with injected conjunctiva, consistent with bacterial conjunctivitis. Vital signs stable. Prescription for Polytrim sent to pharmacy. Anticipatory guidance given. Differential Diagnosis Differential diagnosis: Likely corneal abrasion and conjunctivitis Critical Care Time Critical Care Time Critical Care Time: No Discharge Plan Discharge Clinical Impression: Acute bacterial conjunctivitis of both eyes Patient Disposition: Home Condition: Stable Instructions: Conjunctivitis (ED) Additional Instructions: Please use the eyedrops as directed. Wash hands frequently before and after use of the drops. Follow-up with your PCP with any additional concerns. Your blood pressure was elevated above 120/80 today at Urgent Care. This puts you above the threshold for follow up. Please schedule a followup visit with your personal physician as soon as possible, for further evaluation and treatment. Even blood pressure exceeding 120/80 may indicate pre-hypertension. Patient Language: Macedonian Prescriptions: New polymyxin B sulf-trimethoprim 10,000 unit- 1 mg/mL drops 1 drp EACH EYE QID 7 Days Qty: 10 0RF No Action aspirin [Adult Low Dose Aspirin] 81 mg tablet,delayed release (DR/EC) 81 mg PO DAILY psyllium husk 0.52 gram capsule 2.6 g PO DAILY ICaps AREDS2 250 mg-200 unit -12.5 mg-1 mg capsule 1 cap PO DAILY Centrum Silver 0.4 mg-300 mcg- 250 mcg tablet 1 tablet PO DAILY omega 6-xxx-wob-fish oil [Fish Oil] 60-90-500 mg capsule 1 cap PO BID loperamide 2 mg capsule 2 mg PO QID PRN (Reason: loose stool) amitriptyline 10 mg tablet 10 mg PO QHS alprazolam [Xanax] 0.5 mg tablet 0.5 mg PO Q4-5H PRN (Reason: anxiety) (DME) PAP Equipment See Rx Instructions .Route .MEDSUPPLY Qty: 1 0RF Rx Instructions: Rx: BPAP 24/19 cm H2O, BPAP mask/filters/tubing and humidifier chamber Dx: G47.33 *Please link patient's BPAP machine to me through [facility]* Physician: Dr. Margy Cowan DO DME: [employer] ezetimibe 10 mg tablet 10 mg PO DAILY Qty: 90 1RF escitalopram oxalate 20 mg tablet 20 mg PO DAILY Qty: 90 1RF Rx Instructions: TAKE 1 TABLET BY MOUTH DAILY valsartan-hydrochlorothiazide 80-12.5 mg tablet See Rx Instructions .ROUTE .COMPLEX Qty: 90 0RF Dose Instruction: TAKE 1 TABLET BY MOUTH DAILY Rx Instructions: TAKE 1 TABLET BY MOUTH DAILY Follow-up/Referrals: Alivia Peres, NUTRITION SERVICES ASSISTANT-C [Primary Care Provider] - Time of Disposition: 10:13
== END 2025-01-20 10:20 | disposition home or self-care (01) ==
PROVIDERS: Emergency Provider Nurse Practitioner; PCP Clinical Nurse Specialist
DX: H10.33 Unspecified acute conjunctivitis, bilateral (principal); F17.210 Nicotine dependence, cigarettes, uncomplicated; G20.A1 Parkinson's disease without dyskinesia, without mention of fluctuations; I10 Essential (primary) hypertension; E78.2 Mixed hyperlipidemia; E66.9 Obesity, unspecified; Z68.37 Body mass index [BMI] 37.0-37.9, adult; Z79.82 Long term (current) use of aspirin; F41.9 Anxiety disorder, unspecified
CPT/HCPCS: 99213; G0463

== ENCOUNTER 2025-04-10 15:59 | Outpatient (CLI) | payer MEDICARE, SELFPAY ==
--- OUTSIDE RECORDS SUMMARY | 2003-07-18 08:00 | XMS_ITS | Continuity of Care Document ---
Author Organization [facility] Address [address] [place] [address] Phone Care Team Providers Care Reproduction Artist Name Role Phone Som Fonseca Unavailable Unavailable Advance Directives Directive Yes / No Effective Date File Name No Information Encounters Encounter Description Practice Location Reason(s) For Visit Diagnoses Date Provider Providers [facility]ied on [facility]counter [facility], [address], [place], [place], [id number], [place] tel:[phone] [facility] No Information Raymundo Kearns. [address] [place], [address], [place]. tel:[phone] Family History Family Member Type Diagnosis Age At Onset No Information Payers Payer name Insurance type Covered libertarian ID Authoriza tiopal(s) [facility] Commercial CI [id number] Social History Type Description Quantity Date Captured [...]
--- OUTSIDE RECORDS SUMMARY | 2014-10-31 11:55 | XMS_ITS | Continuity of Care Document ---
Author Organization [facility] Address [address] [place] [address] Phone Care Team Providers Care Supervisor Tan Room Name Role Phone Mathew Bass MD Unavailable [...] Diagnoses Date Provider Providers Copied on Encounter [employer] [facility], [address], [place], [place], [address], tel:[phone] [facility] No Information Shelia Carmona. [address] [place] [address], [id number], . tel:[phone] [employer], [address], [place], [place], [address], tel:[phone] [facility] No Information Shelia Carmona. [address] [place] [address], [address], [id number], . tel:[phone] Family History Family Member Type Diagnosis Age [...]
--- OUTSIDE RECORDS SUMMARY | 2025-04-10 11:35 | XMS_ITS | Encounter Summary ---
Author Organization [facility] Healthcare Address [address] [place] [address] Care Team Providers Care Fleet Sales Associate Name Role Phone Margy Cowan DO Primary Care Provider + Reason for Referral * MRI/CAT/PET Scan (Routine) - Closed Specialty Diagnoses / Procedures Referred By Ruiac t Referred To Contact Radiology Diagnoses Solitary pulmonary nodule Procedures CT Chest WO Contrast Vasquez Fallon MD Phone: tel: fax: [address] [phone] Referral ID Status Reason Start Date Expiration Date Visits Re quested Visits Authorized [id number] Closed 10/03/2024 11/02/2025 1 1 Reason for Visit * MRI/CAT/PET Scan (Routine) - Closed Specialty Diagnoses / Procedures Referred By Contac t Referred To Contact Radiology Diagnoses Solitary pulmonary nodule Procedures CT Chest WO Contrast Vasquez Fallon MD Phone: tel: fax: [address] [phone] Referral ID Status Reason Start Date Expiration Date Visits Re quested Visits Authorized [id number] Closed 10/03/2024 11/02/2025 1 1 Encounter Details Date Type Department Care Team (Latest Contact Info) Description 04/10/2025 11:35 AM CDT Hospital Encounter [facility] - [place] [address] [facility] Floor 8 [place] [address] Solitary pulmonary nodule Social History Tobacco Use Types Packs/Day Years Used Date Smoking Tobacco: Every Day Cigarettes 1 50.9 Started: 05/30/1974 Smokeless Tobacco: Never Sex and Gender Information Value Date Recorded Sex Assigned at Not on file 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 Gender Identity Not on file Sexual Orientation Not on file documented as of this encounter Plan of Treatment Pending Results Name Type Priority Associated Diagnoses Date /Time CT Chest WO Contrast Imaging Schedule Routine, Read Routine (OP Routine) Solitary pulmonary nodule 04/10/2025 11:42 AM CDT documented as of this encounter Procedures Procedure Name Priority Date/Time Associated Diagnosis Comments CT CHEST WO CONTRAST Schedule Routine, Read Routine (OP Routine) 04/10/2025 11:42 AM CDT Solitary pulmonary nodule Procedure Note - Balaji Henry MD / Jorden Julian MD - 04/10/2025 11:42 AM CDTThis note is in progress. EXAMINATION: Computed tomography of the chest without intravenous contrast HISTORY: Pulmonary nodule follow-up TECHNIQUE: Transaxial computed tomographic images of the chest were obtained without intravenous contrast according to the standard protocol. COMPARISON: CT 10/03/2024; PET CT 03/22/2024 FINDINGS: No axillary, supra clavicular, mediastinal, or hilar lymphadenopathy. Normal heart size without pericardial effusion. Mild subendocardial fatty metaplasia in the left ventricle may represent sequela of prior infarct. Multivessel coronary artery calcifications. No pericardial effusion. Normal caliber thoracic aorta and main pulmonary artery. The central airways are patent. Unchanged 9 mm right lower lobe pulmonary nodule (series 3 image 88, previously 8 mm when measured in a similar fashion). Unchanged 8 mm left upper lobe pulmonary nodule (series 3 image 78). No new or enlarging pulmonary nodules. No consolidation, pleural effusion, or pneumothorax. Unremarkable noncontrast appearance of the imaged portions of the liver, gallbladder, pancreas, spleen, bilateral adrenal glands. Several old left posterolateral rib fractures. No suspicious osseous lesions. IMPRESSION: Unchanged 9 mm right lower lobe and 8 mm left upper lobe pulmonary nodules. No new or enlarging pulmonary nodules. Recommend continued attention on follow up imaging. Dictated by: Balaji Henry MD documented in this encounter Visit Diagnoses Diagnosis Solitary pulmonary nodule documented in this encounter Care Teams Fleet Sales Associate Relationship Specialty Start Date End Date Margy Cowan DO [facility] [facility] [address] [place] [address], [place] [address] PCP - General Family Medicine 08/29/24 documented as of this encounter
--- OUTSIDE RECORDS SUMMARY | 2025-04-10 13:00 | XMS_ITS | Encounter Summary ---
Author Organization [facility] Address [address] [place] [address] Phone Care Team Providers Care Credit Card Control Clerk Name Role Phone Cowan Margy Ortega Primary Care Provider + Reason for Referral * MRI/CAT/PET Scan (Routine) - Authorized Specialty Diagnoses / Procedures Referred By Vitaliy pretty Referred To Contact Radiology Diagnoses Pulmonary nodule Procedures CT Chest WO Contrast Vasquez Fallon MD [address] [facility] [id number] [place] [address] Phone: tel: fax: [address] [phone] Referral ID Status Reason Start Date Expiration Date V isits Requested Visits Authorized [id number] Authorized 04/10/2025 05/10/2026 1 1 Encounter Details Date Type Department Care Team (Late Contact Info) Description 04/10/2025 1:00 PM CDT Office Visit [facility] Medicine Surgery [address] [facility] Floor 5 [place] [address] Vasquez Fallon MD [address] [facility] [id number] [place] [address] Pulmonary nodule (Primary Dx) Social History Tobacco Use Types Packs/Day Years Used Date Smoking Tobacco: Every Day Cigarettes 1 50.9 Started: 05/30/1974 Smokeless Tobacco: Never Sex and Gender Information Value Date Recorded Sex Assigned at Not on file 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 Gender Identity Not on file Sexual Orientation Not on file documented as of this encounter Last Filed Vital Signs Vital Sign Reading Time Taken Comments Blood Pressure 118/71 04/10/2025 12:10 PM CDT Pulse 75 04/10/2025 12:10 PM CDT Temperature 36.2 C (97.2 F) 04/10/2025 12:10 PM CDT Respiratory Rate 18 04/10/2025 12:1 0 PM CDT Oxygen Saturation 94% 04/10/2025 12: 10 PM CDT Inhaled Oxygen Concentration - - Weight 126.3 kg (278 lb 6.4 oz) 025 12:10 PM CDT Height 181 cm (5' 11.26) 04/10/2025 12 :51 PM CDT Body Mass Index 38.55 04/10/2025 12:10 PM CDT documented in this encounter Plan of Treatment Scheduled Orders Name Type Priority Associated Diagnoses Orde r Schedule CT Chest WO Contrast Imaging Schedule Routine, Read Routine (OP Routine) Pulmonary nodule Expected: 04/10/2026, Expires: 10/09/2026 documented as of this encounter Visit Diagnoses Diagnosis Pulmonary nodule- Primary Other diseases of lung, not elsewhere classified documented in this encounter Historical Medications * This list may reflect changes made after this encounter. amitriptyline (ELAVIL) 10 mg tablet Take 1 tablet (10 mg total) by mouth nightly added in this encounter Care Teams Credit Card Control Clerk Relationship Specialty Start Date End Date Margy Cowan DO [address] [facility] [address] [place] [id number] PCP - General Family Medicine 08/29/24 documented as of this encounter
--- OUTSIDE RECORDS SUMMARY | 2025-04-10 16:03 | XMS_ITS | Clinical Summary ---
Author Organization [facility] Address [facility] [place] [address] Care Team Providers Care Milk Pickup Driver Name Role Phone Margy Cowan Primary Care Provider + Allergies No known active allergies Medications escitalopram (LEXAPRO) 20 mg tablet Take 1 tablet (20 mg total) by mouth daily 1 Active valsartan (DIOVAN) 80 mg tablet Take 1 tablet (80 mg total) by mouth daily 4 Active ezetimibe (ZETIA) 10 mg tablet Take 1 tablet (10 mg total) by mouth daily 1 Active aspirin 81 mg chewable tablet Take 1 tablet (81 mg total) by mouth 4 Active ALPRAZolam (XANAX) 0.5 mg tablet Take 1 tablet (0.5 mg total) by mouth 4 (four) times a day as needed 4 Active ketoconazole (NIZORAL) 2 % cream Apply topically 4 Active loperamide (IMODIUM) 2 mg capsule Take 1 capsule (2 mg total) by mouth daily 4 Active valsartan-hydro CHLOROthiazide (DIOVAN-HCT) 80-12.5 mg per tablet Take 1 tablet by mouth daily 1 Active multivit-min/fo lic acid/lutein (CENTRUM SILVER ORAL) Take by mouth 4 Active mupirocin-lidoc jaron 2-2 % ointment Apply topically 4 Active CLOBETASOL PROPIONATE, BULK, MISC Apply topically 4 Active omega 7-isq-uxi-fish oil (Fish OiL) 1,000 (120-180) mg capsule Take 1 capsule (1,000 mg total) by mouth 2 (two) times a day 4 Active cellulose-carbo xy-mc sod,bulk, 88.3-11.7 % powder Administer into affected eye(s) 4 Active amitriptyline (ELAVIL) 10 mg tablet Take 1 tablet (10 mg total) by mouth nightly Active Active Problems Problem Noted Date Diagnosed Date Pulmonary nodule 05/29/2024 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 [address] [place] [address] Vasquez Fallon MD Pulmonary nodule (Primary Dx) 04/10/2025 11:35 AM CDT Hospital Encounter [facility] [place] [address] [facility] [address] [place] [address] Solitary pulmonary nodule from Last 3 Months Immunizations Immunization Administration Dates Next Due Influenza, Quad, Adjuvantate d, Intramuscular 05/04/2023 Influenza, Quadrivalent, Hig h Dose, Preservative Free, Intrr 03/31/2022 Influenza, Trivalent, High D ose, Split, Preservative Free, Intramuscular 04/21/2024,04/29/2019,04/23/2018,05/01,04/06/2016,04/03/2015,04/11/2014 Influenza, Trivalent, IM (MDV) 04/09/2013 Influenza, Unspecified 04/10/2024,2022,04/10/2022,04/10,04/10/2019,04/10/2018,04/10/2017 ,04/10/2016,04/10/2015 Moderna SARS-CoV-2 Monovalen t Vaccination (12+ YRS) 10/26/2021 Pfizer SARS-CoV-2 Monovalent Vaccination (12+ Yrs) PURPLE 05/07/2021,08/30/2020,08/09/2020 Pneumococcal Conjugate PCV 13 08/30/2017 Pneumococcal Polysaccharide PPV23 08/30/2018 Tdap 08/30/2018 ZOSTER LIVE 07/20/2013 ZOSTER Recombinant 04/23/2021,10/14/2020 Surgical History Surgery Date Site/Laterality Comments CATARACT EXTRACTION Cataract Surgery - OU 2010. PC IOL (Added by SARAHI Conv) Medical History Medical History Date Comments Personal history of other di seases of the circulatory system History of hypertension - (A dded by SARAHI Conv) Hyperlipidemia Hypertension Nicotine dependence Dizziness and giddiness Anxiety disorder Parkinson's disease (HCC) Obstructive sleep apnea Pulmonary nodule Carpal tunnel syndrome Family History Medical History Relation Name Comments Clotting disorder Sister Relation Name Status Comments Sister Social History Tobacco Use Types Packs/Day Years Used Date Smoking Tobacco: Every Day Cigarettes 1 50.9 Started: 05/30/1974 Smokeless Tobacco: Never Tobacco Cessation:Counseling Given: Yes Sex and Gender Information Value Date Recorded Sex Assigned at Not on file 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 Gender Identity Not on file Sexual Orientation Not on file Obstetrics History Last Filed Vital Signs Vital Sign Reading [...] Mass Index 38.55 04/10/2025 12:10 PM CDT Plan of Treatment Health Maintenance Due Date Last Done Comments Depression Screening 1948 Fall Risk Assessment 1950 Hepatitis C Screening 1950 Hepatitis B Screening 02/28/1966 Lung Cancer Screening 02/28/1998 Well Visit 65+ 02/28/2013 Covid-19 Vaccine (6 2024-2 6 season) 2025 07/20/2023, 10/26/2021, 05/07/2021, Additional history exists Influenza Vaccine (#1) 2025 , 04/10/2024, 05/04/2023, Additional history exists DTaP/Tdap/Td Vaccine (2 - Td or Tdap) 08/30/2028 08/30/2018 Pneumococcal vaccine 65+ Completed 08/30/2018, 08/12 Zoster Vaccine Completed 04/23/2021, 04/0 12/2020, 07/20/2013 Procedures Procedure Name Priority Date/Time Associated Diagnosis [...] up imaging. Dictated by: Balaji Henry MD from Last 3 Months Insurance MEDICARE [facility] MEDICARE SUPPLEMENT MEDICARE [facility] MEDICARE SUPPLEMENT Care Teams Milk Pickup Driver Relationship Specialty Start Date End Date Margy Cowan DO [address] [facility] [facility] [address] [place] [address] [place] [address] [id number] PCP - General Family Medicine 08/29/24
--- OUTSIDE RECORDS SUMMARY | 2025-04-10 16:03 | XMS_ITS | Clinical Summary ---
Author Organization [facility] Address [address] [place] [address] Care Team Providers Care Customer Project Manager Name Role Phone Unavailable Primary Care Provider Unavailabl e Source Comments [facility],non-owned Affiliates and Associated Physician Practices is amultiple site organization consisting of ambulatory clinics and hospital sitesin [place], [place], [place] and [place]. This disclosure is being madepursuant to the Care Everywhere program and may not contain all information available regarding this patient. 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 Gender Identity Not on file Sexual Orientation Not on file Plan of Treatment Health Maintenance Due Date Last Done Comments MEDICARE AWV 12 MONTHS 1950 HEPATITIS C SCREENING 02/24/1966 DTAP/TDAP/TD VACCINES (1 - Tdap) 02/28/1967 PNEUMOCOCCAL VACCINE 50+ (1 of 1 - PCV) 02/28/1998 ZOSTER VACCINE (1 of 2) 02/28/1998 Respiratory Syncytial Virus (RSV) Vaccine Pt: or over 60 yrs (1 - 1-dose 75+ series) 02/28/2023 DEPRESSION SCREENING 07/11/2024 COVID-19 VACCINE (1 - 2023-2 5 season) 2025 INFLUENZA VACCINE (#1) 2025 HEPATITIS B VACCINE Aged Out No longe r eligible based on patient's age to complete this topic HIB VACCINE Aged Out No longer eligi ble based on patient's age to complete this topic HPV VACCINE Aged Out No longer eligi ble based on patient's age to complete this topic MENINGOCOCCAL (Group B) VACC INE SHARED DECISION-MAKING Aged Out No longer eligibl e based on patient's age to complete this topic MENINGOCOCCAL GROUPS A/C/Y/W VACCINE Aged Out No longer eligible b ased on patient's age to complete this topic Insurance MEDICARE
[2025-04-10 16:48] LABS: Hematocrit 42.4 % (42.0-52.0); Hemoglobin 13.8 g/dL (14.0-18.0); Mean Corpuscular HGB Conc 32.5 g/dl (32-36); Mean Corpuscular Hemoglobin 28.2 pg (26-34); Mean Corpuscular Volume 86.7 fl (80-100); Platelet Count Result 253 k/mm3 (150-375); Red Blood Count 4.89 M/mm3 (4.6-6.20); White Blood Count 11.0 K/mm3 (4.5-10.0)
[2025-04-10 18:08] LABS: Alanine Aminotransferase 14 U/L (6-50); Albumin Level 3.9 g/dL (3.5-5.1); Alkaline Phosphatase 81 U/L (38-126); Anion Gap 10 mmol/L (4-12); Aspartate Amino Transferase 20 U/L (17-59); Bilirubin,Total 0.3 mg/dL (0.2-1.3); Blood Urea Nitrogen 17 mg/dL (9-20); Calcium 8.5 mg/dL (8.4-10.2); Carbon Dioxide 24 mmol/L (22-30); Chloride 103 mmol/L (98-107); Estimated Glomerular Filt Rate > 60; Glucose 121 mg/dL (65-110); Potassium 3.6 mmol/L (3.4-5.0); Sodium 137 mmol/L (137-145); Total Protein 6.7 g/dL (6.3-8.2)
[2025-04-10 18:33] LABS: CRP 1.4 mg/dL (<1.0)
== END 2025-04-10 16:00 | disposition home or self-care (01) ==
PROVIDERS: PCP Family Medicine; Visit Provider Nurse Practitioner
DX: G56.00 Carpal tunnel syndrome, unspecified upper limb (principal); K52.9 Noninfective gastroenteritis and colitis, unspecified; D72.829 Elevated white blood cell count, unspecified
CPT/HCPCS: 36415; 80053; 85027; 86140

== ENCOUNTER 2025-04-11 10:26 | Outpatient (CLI) | payer MEDICARE, SELFPAY ==
--- OUTSIDE RECORDS SUMMARY | 2003-07-18 08:00 | XMS_ITS | Continuity of Care Document ---
Author Organization Formerly [facility] Address [address] [place] [address] Phone Care Team Providers Care Director Of Business Services Name Role Phone Som Fonseca Unavailable Unavailable Advance Directives Directive Yes / No Effective Date File Name No Information Encounters Encounter Description Practice Location Reason(s) For Visit Diagnoses Date Provider Providers Copied on [facility], [address], [place], [place], [id number], [place] tel:[phone] [facility] No Information Raymundo Kearns. [address] [place], [address], [place]. tel:[phone] Family History Family Member Type Diagnosis Age At Onset No Information Payers Payer name Insurance type Covered green party ID Authoriza tiopal(s) [facility] Commercial CI [id number] Social History Type Description Quantity Date Captured Comments Sex Male Smoking Status No Information Chief Complaint And Reason For Visit No Information Reason For Referral Reason For Referral No Information History Of Present Illness Encounter Date Complaint History Of Prese nt Illness No Information Functional Status Date Functional Assessmen t No Information Instructions Date Instruction Additional Infor mation No Information Assessments Type Assessment Date No Information Patient Care Teams Name Effective Dates (start - stop) Status Members No Information
--- OUTSIDE RECORDS SUMMARY | 2003-07-18 08:00 | XMS_ITS | Continuity of Care Document ---
Author Organization [facility] Address [address] [place] [address] Phone Care Team Providers Care Community Health Nursing Director Name Role Phone Som Fonseca Unavailable Unavailable Advance Directives Directive Yes / No Effective Date File Name No Information Encounters Encounter Description Practice Location Reason(s) For Visit Diagnoses Date Provider Providers [email or web address], [address], [place], [place], [id number], [place] tel:[phone] [facility] No Information Raymundo Kearns. [address] [place], [address], [place]. tel:[phone] Family History Family Member Type Diagnosis Age At Onset No Information Payers Payer name Insurance type Covered constitution party ID Authoriza tiopal(s) [facility] Commercial CI [id number] Social History Type Description Quantity Date Captured [...]
--- OUTSIDE RECORDS SUMMARY | 2003-07-18 08:00 | XMS_ITS | Continuity of Care Document ---
Author Organization [facility] Address [address] [place] [address] Phone Care Team Providers Care Nozzle Cement Sprayer Helper Name Role Phone Som Fonseca Unavailable Unavailable Advance Directives Directive Yes / No Effective Date File Name No Information Encounters Encounter Description Practice Location Reason(s) For Visit Diagnoses Date Provider Providers [email or web address], [address], [place], [place], [id number], [place] tel:[phone] [facility] No Information Raymundo Kearns. [address] [place], [address], [place]. tel:[phone] Family History Family Member Type Diagnosis Age At Onset No Information Payers Payer name Insurance type Covered democrat ID Authoriza tiopal(s) [facility] Commercial CI [id number] Social History Type Description Quantity Date Captured [...]
--- OUTSIDE RECORDS SUMMARY | 2014-10-31 11:55 | XMS_ITS | Continuity of Care Document ---
Author Organization [facility] Address [address] [place] [address] Phone Care Team Providers Care Donation Worker Name Role Phone Mathew Bass MD Unavailable Unavailable Medications Medication Instructions Dosage Effective Dates (start - stop) Status Comments Lexapro 20 mg tablet take 1 tablet by or al route every day 20 MG - Active Fish Oil 300 mg-1,000 mg capsule,delayed release - Active aspirin 81 mg tablet,delayed release take 1 tablet by oral route every day 81 MG - Active simvastatin 10 mg tablet take 1 tablet by oral route every day in the evening 10 MG - Active Advance Directives Directive Yes / No Effective Date File Name No Information Encounters Encounter Description Practice Location Reason(s) For Visit Diagnoses Date Provider Providers Copied on Encounter [facility], [address], [place], [place], [address], tel:[phone] [facility] No Information Shelia Carmona. [address] [place] [address], [id number], . tel:[phone] [facility], [address], [place], [place], [address], tel:[phone] [facility] No Information Shelia Carmona. [address] [place] [address], [address], [id number], . tel:[phone] Family History Family Member Type Diagnosis Age At Onset Problem (finding) Family history of Colon polyps Problem (finding) Family history of Diabe irving mellitus Payers Payer name Insurance type Covered alliance party ID Authoriza tion(s) No Information Social History Type Description Quantity Date Captured Comments Alcohol Use Details Unknown Caffeine Use Details Unknown Tobacco Use Status Smoking Status No Information Sex Male Chief Complaint And Reason For Visit No [...]
--- OUTSIDE RECORDS SUMMARY | 2014-10-31 11:55 | XMS_ITS | Continuity of Care Document ---
Author Organization [facility] Address [address] [place] [address] Phone Care Team Providers Care Imposer Name Role Phone Mathew Bass MD Unavailable [...] Diagnoses Date Provider Providers Copied on Encounter [employer] [facility], [address], [place], [place], [id number], tel:[phone] [facility] No Information Shelia Carmona. [address] [place] [address], [id number], . tel:[phone] [facility], [address], [place], [place], [address], tel:[phone] [facility] No Information Shelia Carmona. [address] [place] [address], [address], [id number], . tel:[phone] Family History Family Member Type Diagnosis Age At Onset Problem (finding) Family history of Colon polyps Problem (finding) Family history of Diabe irving mellitus Payers Payer name Insurance type Covered constitution party ID Authoriza tion(s) No Information Social [...]
--- OUTSIDE RECORDS SUMMARY | 2014-10-31 11:55 | XMS_ITS | Continuity of Care Document ---
Author Organization [facility] Address [address] [place] [address] Phone Care Team Providers Care Heavy Machinery Assembler Name Role Phone Mathew Bass MD Unavailable [...] Diagnoses Date Provider Providers Copied on Encounter [facility], [address], [place], [place], [address], tel:[phone] [facility] No Information Shelia Carmona. [address] [place] [address], [id number], . tel:[phone] [employer], [address], [place], [place], [address], tel:[phone] [facility] No Information Shelia Carmona. [address] [place] [address], [address], [id number], . tel:[phone] Family History Family Member Type Diagnosis Age [...]
--- OUTSIDE RECORDS SUMMARY | 2025-04-10 11:35 | XMS_ITS | Encounter Summary ---
Author Organization [facility] Healthcare Address [address] [place] [address] Care Team Providers Care Cutter Apprentice Hand Name Role Phone Margy Cowan DO Primary Care Provider + Reason for Referral * MRI/CAT/PET Scan (Routine) - Closed Specialty Diagnoses / Procedures Referred By Ruiac t Referred To Contact Radiology Diagnoses Solitary pulmonary nodule Procedures CT Chest WO Contrast Vasquez Fallon MD Phone: tel: fax: [address] [phone] Referral ID Status Reason Start Date Expiration Date Visits Re quested Visits Authorized [id number] Closed 10/03/2024 11/02/2025 1 1 Reason for Visit * MRI/CAT/PET Scan (Routine) - Closed Specialty Diagnoses / Procedures Referred By Contac t Referred To Contact Radiology Diagnoses Solitary pulmonary nodule Procedures CT Chest WO Contrast Vasquez Fallon MD Phone: tel: fax: [address] [phone] Referral ID Status Reason Start Date Expiration Date Visits Re quested Visits Authorized [id number] Closed 10/03/2024 11/02/2025 1 1 Encounter Details Date Type Department Care Team (Latest Contact Info) Description 04/10/2025 11:35 AM CDT - 04/10/2025 11:59 PM CDT Hospital Encounter 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 Gender Identity Not on file Sexual Orientation Not on file documented as of this encounter Medications at Time of Discharge ALPRAZolam (XANAX) 0.5 mg tablet Take 1 tablet (0.5 mg total) by mouth 4 (four) times a day as needed 07/20/2023 amitriptyline (ELAVIL) 10 mg tablet Take 1 tablet (10 mg total) by mouth nightly aspirin 81 mg chewable tablet Take 1 tablet (81 mg total) by mouth 07/20/2023 cellulose-carbox y-mc sod,bulk, 88.3-11.7 % powder Administer into affected eye(s) 10/07/2023 CLOBETASOL PROPIONATE, BULK, MISC Apply topically 03/08/2024 escitalopram (LEXAPRO) 20 mg tablet Take 1 tablet (20 mg total) by mouth daily 10/14/2020 ezetimibe (ZETIA) 10 mg tablet Take 1 tablet (10 mg total) by mouth daily 10/14/2020 ketoconazole (NIZORAL) 2 % cream Apply topically 01/25/2024 loperamide (IMODIUM) 2 mg capsule Take 1 capsule (2 mg total) by mouth daily 07/20/2023 multivit-min/fol ic acid/lutein (CENTRUM SILVER ORAL) Take by mouth 10/07/2023 mupirocin-lidoca ine 2-2 % ointment Apply topically 01/25/2024 omega 9-qqd-jil-fish oil (Fish OiL) 1,000 (120-180) mg capsule Take 1 capsule (1,000 mg total) by mouth 2 (two) times a day 07/20/2023 valsartan (DIOVAN) 80 mg tablet Take 1 tablet (80 mg total) by mouth daily 04/28/2024 valsartan-hydroC HLOROthiazide (DIOVAN-HCT) 80-12.5 mg per tablet Take 1 tablet by mouth daily 10/14/2020 documented as of this encounter Discharge Disposition Disposition Code Departure Means Destination Discharge to home or self care documented in this encounter Plan of Treatment Not on file documented as of this encounter Procedures Procedure Name Priority Date/Time Associated Diagnosis Comments CT CHEST WO CONTRAST Schedule Routine, Read Routine (OP Routine) 04/10/2025 11:42 AM CDT Solitary pulmonary nodule documented in this encounter Results * CT Chest WO Contrast (04/10/2025 11:42 AM CDT) Anatomical Region Laterality Modality Body N/A Computed Tomogra phy 04/10/2025 11:5 1 AM CDT Impressions 04/11/2025 7:15 AM CDT Unchanged 9 mm right lower lobe and 8 mm left upper lobe pulmonary nodules. No new or enlarging pulmonary nodules. Recommend continued attention on follow up imaging. Dictated by: Balaji Henry MD The radiology attending physician has personally reviewed this study, and had reviewed and/or edited this written report and agrees with it. Electronically signed by: Jorden Julian M.D. Narrative 04/11/2025 7:15 AM CDT EXAMINATION: Computed tomography of the chest without [...] posterolateral rib fractures. No suspicious osseous lesions. Procedure Note Jorden Julian MD - 04/11/2025 EXAMINATION: Computed tomography of the chest without [...] up imaging. Dictated by: Balaji Henry MD The radiology attending physician has personally reviewed this study, and had reviewed and/or edited this written report and agrees with it. Electronically signed by: Jorden Julian M.D. Vasquez Fallon MD IMG CT PROCEDURES Final R esult documented in this encounter Visit Diagnoses Diagnosis Solitary pulmonary nodule documented in this encounter Care Teams Cutter Apprentice Hand Relationship Specialty Start Date End Date Margy Cowan DO [facility] [address] [place] [id number] PCP - General Family Medicine 08/29/24 documented as of this encounter
--- OUTSIDE RECORDS SUMMARY | 2025-04-10 13:00 | XMS_ITS | Encounter Summary ---
Author Organization [facility] Address [address] [place] [address] Phone Care Team Providers Care Records Assistant Name Role Phone Cowan Margy Ortega Primary Care Provider + Reason for Referral * MRI/CAT/PET Scan (Routine) - Authorized Specialty Diagnoses / Procedures Referred By Vitaliy pretty Referred To Contact Radiology Diagnoses Pulmonary nodule Procedures CT Chest WO Contrast Vasquez Fallon MD [address] [facility] [id number] [place] [address] Phone: tel: fax: [address] [phone] Referral ID Status Reason Start Date Expiration Date V isits Requested Visits Authorized [id number] Authorized 04/10/2025 05/10/2026 1 1 Encounter Details Date Type Department Care Team (Late Contact Info) Description 04/10/2025 1:00 PM CDT Office Visit [facility] Medicine Surgery [address] [facility] Floor 5 [place] [address] Vasquez Fallon MD [address] [facility] [id number] [place] [address] Pulmonary nodule (Primary Dx) Social History Tobacco Use Types Packs/Day Years Used Date Smoking Tobacco: Every Day Cigarettes 1 50.9 Started: 05/30/1974 Smokeless Tobacco: Never Sex and Gender Information Value Date Recorded Sex Assigned at Not on file 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 [address] [place] [address] PCP - General Family Medicine 08/29/24 documented as of this encounter
--- OUTSIDE RECORDS SUMMARY | 2025-04-11 10:59 | XMS_ITS | Clinical Summary ---
Author Organization [facility] Address [address] [place] [id number] Care Team Providers Care Flight Operations Engineer Name Role Phone Margy Cowan Primary Care [...] BULK, MISC Apply topically 4 Active omega 9-hot-myc-fish oil (Fish OiL) 1,000 (120-180) mg capsule [...] Description 04/10/2025 1:00 PM CDT Office Visit [facility] Medicine Surgery [address] [facility] [address] [place] [address] Vasquez Fallon MD Pulmonary nodule (Primary Dx) 04/10/2025 11:35 AM CDT - 04/10/2025 11:59 PM CDT Hospital Encounter [facility] [place] [address] [facility] [address] [place] [address] Solitary pulmonary nodule Discharge Disposition: Discharge to home or self care from Last 3 Months Immunizations Immunization Administration [...] OU 2010. 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 Gender Identity Not on file Sexual [...] Well Visit 65+ 02/28/2013 Covid-19 Vaccine (6 - 2024-2 6 season) 2025 07/20/2023, 10/26/2021, 05/07/2021, [...] 04/10/2025 11:42 AM CDT Solitary pulmonary nodule from Last 3 Months Results * CT Chest WO Contrast (04/10/2025 [...] MD IMG CT PROCEDURES Final R esult from Last 3 Months Insurance MEDICARE [facility] MEDICARE SUPPLEMENT MEDICARE [facility] MEDICARE SUPPLEMENT Care Teams Flight Operations Engineer Relationship Specialty Start Date End Date Margy Cowan DO [address] [place] [address] DR [address] [place] [id number] PCP - General Family Medicine 08/29/24
--- OUTSIDE RECORDS SUMMARY | 2025-04-11 10:59 | XMS_ITS | Clinical Summary ---
Author Organization [facility] Address [address] [place] [address] Care Team Providers Care E D Tech Name Role Phone Unavailable Primary Care Provider Unavailabl e Source Comments [facility],non-owned Affiliates and Associated Physician Practices is amultiple site organization consisting of ambulatory clinics and hospital sitesin [place], [place], [place] and [place]. This disclosure is being madepursuant to the Care Everywhere program and may not contain all information available regarding this patient. 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
[2025-04-11 12:34] LABS: Toxigenic C. Diff NEGATIVE (NEGATIVE)
[2025-04-15 14:08] LABS: Pancreatic Elastase, Fecal 89 (>200)
[2025-04-16 08:09] LABS: Calprotectin, Fecal 344 ug/g (0-120)
== END 2025-04-11 10:27 | disposition home or self-care (01) ==
PROVIDERS: PCP Family Medicine; Visit Provider Nurse Practitioner
DX: K52.9 Noninfective gastroenteritis and colitis, unspecified (principal); D72.829 Elevated white blood cell count, unspecified; A04.72 Enterocolitis due to Clostridium difficile, not specified as recurrent
CPT/HCPCS: 82653; 83993; 87493; 87507